=== PATIENT | male | born 1990 | race Two or more races ===

== ENCOUNTER 2017-10-12 17:31 | Emergency (ER) | payer OTHER ==
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
[2017-10-12] MEDS: Amoxicillin/Clavulanate K 875-125 MG Tab PO ONE (18:31)
[2017-10-12] MEDS: Ketorolac 60 MG/2 ML SDV IM ONE (18:32)
[2017-10-12] MEDS: cloNIDine 0.1 MG Tab PO ONE (19:10)
[2017-10-13] MEDS ORDERED: Magnesium Sulfate/Water 2 GM in Premix Bag 1 BAG IV ONE (00:45)
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
== END 2017-10-12 20:36 | disposition home or self-care (01) ==
LOC: FB.ED 17:31
DX: S06.0X0A Concussion without loss of consciousness, initial encounter (principal); S00.03XA Contusion of scalp, initial encounter; E87.6 Hypokalemia; I10 Essential (primary) hypertension; R00.0 Tachycardia, unspecified; V89.2XXA Person injured in unspecified motor-vehicle accident, traffic, initial encounter
CPT/HCPCS: 36415; 70450; 70486; 72125; 80048; 80305; 81001; 85025; 99284; A9270; G0480; J1885

== ENCOUNTER 2018-07-24 13:54 | Emergency (ER) | payer OTHER ==
[2018-07-24] MEDS ORDERED: Albuterol/Ipratropium 3.0-0.5 MG/3 ML Neb Soln NEB ONE (14:20)
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
== END 2018-07-24 15:04 | disposition home or self-care (01) ==
LOC: FB.ED 13:54
DX: J45.901 Unspecified asthma with (acute) exacerbation (principal)
CPT/HCPCS: 71046; 94640; 99284-25; J7620-GY

== ENCOUNTER 2019-02-25 17:16 | Emergency (ER) | payer OTHER ==
[2019-02-25] MEDS ORDERED: Sodium Chloride 0.9% 10 ML Syringe FLUSH PRN (17:59)
[2019-02-25] MEDS ORDERED: Albuterol/Ipratropium 3.0-0.5 MG/3 ML Neb Soln NEB ONE (17:59)
[2019-02-25] MEDS ORDERED: Dexamethasone 4 MG/ML SDV IVPUSH ONE (17:59)
--- NOTE | 2019-02-25 18:04 | EDM.PDOC ---
ED HPI GENERAL MEDICAL PROBLEM - General Chief Complaint: Chest Pain Stated Complaint: CHEST PAIN,HARD TIME BREATHING Time Seen by Provider: 02/25/19 18:00 Source of Information: Reports: Patient History Limitations: Reports: No Limitations - History of Present Illness INITIAL COMMENTS - FREE TEXT/NARRATIVE: Presents with productive cough, congestion, fevers and chills x 2 days, onset after inhalation of sulfur fumes @work. Patient has a h/o asthma. Complains of chest tightness and shortness of breath. No improvement after Proventil. Patient did not receive the flu shot this season. He does not smoke or vape. Onset Date: 02/23/19 Location: Reports: Chest Severity: Moderate Associated Symptoms: Reports: Fever/Chills - Related Data Allergies Allergy/AdvReac Type Severity Reaction Status Date / Time No Known Allergies Allergy Verified 07/24/18 14:09 Home Meds: Home Meds Albuterol [Proventil HFA] 200 puff INH Q4H PRN #1 inhaler 07/24/18 [Rx] Oseltamivir [Tamiflu] 75 mg PO BID #10 cap 02/25/19 [Rx] Sodium Chloride 0.9% [Saline Flush] 10 ml FLUSH ASDIRECTED PRN syringe [Rx] predniSONE [Prednisone] 60 mg PO DAILY 5 Days #15 tablet 02/25/19 [Rx] Past Medical History Cardiovascular History: Denies: CAD Respiratory History: Reports: Asthma, Other (See Below) (pneumonia) Social & Family History - Family History Family Medical History: Unobtainable - Tobacco Use Smoking Status *Q: Never Smoker - Caffeine Use Caffeine Use: Reports: Coffee ED ROS GENERAL - Review of Systems Review Of Systems: Comprehensive ROS is negative, except as noted in HPI. ED EXAM, GENERAL - Physical Exam Exam: See Below Exam Limited By: No Limitations General Appearance: Alert, WD/WN, No Apparent Distress Nose: Normal Inspection Throat/Mouth: Normal Inspection, No Airway Compromise Head: Atraumatic, Normocephalic Neck: Full Range of Motion Respiratory/Chest: No Respiratory Distress, Lungs Clear, Decreased Breath Sounds Cardiovascular: Regular Rate, Rhythm, No Murmur Back Exam: Full Range of Motion Extremities: Normal Range of Motion Neurological: Alert, Normal Cognition Psychiatric: Normal Affect, Normal Mood Skin Exam: Warm, Dry, Intact EKG INTERPRETATION EKG Date: 02/25/19 Time: 17:37 Rhythm: Other (sinus tachycardia) Rate (Beats/Min): 117 P-Wave: Present QRS: Normal ST-T: Other (nonspecific T abnormality) QT: Normal Course - Vital Signs Last Recorded V/S: Last Vital Signs Temp 38.9 C H 02/25/19 18:53 Pulse 110 H 02/25/19 17:30 Resp 17 02/25/19 17:30 BP 158/72 H 02/25/19 17:30 Pulse Ox 97 02/25/19 17:30 - Orders/Labs/Meds Orders: Active Orders 24 hr Category Date Time Status EKG Documentation Completion [RC] ASDIRECTED Care 02/25/19 17:58 Active RT Aerosol Therapy [RC] ASDIRECTED Care 02/25/19 17:59 Active CXR [Chest 2V] [CR] Stat Exams 02/25/19 17:58 Ordered CULTURE BLOOD [BC] Urgent Lab 02/25/19 18:20 Received CULTURE BLOOD [BC] Urgent Lab 02/25/19 18:32 Received Sodium Chloride 0.9% [Saline Flush] Med 02/25/19 17:59 Active 10 ml FLUSH ASDIRECTED PRN Blood Culture x2 Reflex Set [OM.PC] Urgent Oth 02/25/19 17:58 Ordered Saline Lock Insert [OM.PC] Routine Oth 02/25/19 17:59 Ordered EKG 12 Lead [EK] Stat Ther 02/25/19 17:58 Ordered Medication Orders Sodium Chloride (Saline Flush) 10 ml FLUSH ASDIRECTED PRN PRN Reason: Keep Vein Open Labs: Laboratory Tests 02/25/19 02/25/19 02/25/19 Range/Units 18:20 18:20 18:20 WBC 6.1 (4.5-12.0) X10-3/uL RBC 5.21 (4.30-5.75) x10(6)uL Hgb 16.3 (13.5-17.8) g/dL Hct 46.7 (30.0-51.3) % MCV 89.7 (80-96) fL MCH 31.2 (27.7-33.6) pg MCHC 34.8 (32.2-35.4) g/dL RDW 12.0 (11.5-15.5) % Plt Count 212 (125-369) X10(3)uL MPV 7.4 (7.4-10.4) fL Neut % (Auto) 67.2 (46-82) % Lymph % (Auto) 21.2 (13-37) % [place] % (Auto) 9.2 (4-12) % Eos % (Auto) 2 (1.0-5.0) % Baso % (Auto) 1 (0-2) % Neut # (Auto) 4.0 (1.6-8.3) # Lymph # (Auto) 1.3 (0.6-5.0) # [place] # (Auto) 0.6 (0.0-1.3) # Eos # (Auto) 0.1 (0.0-0.8) # Baso # (Auto) 0.1 (0.0-0.2) # Sodium 140 (135-145) mmol/L Potassium 3.3 L (3.5-5.3) mmol/L Chloride 103 (100-110) mmol/L Carbon Dioxide 27 (21-32) mmol/L BUN 10 (7-18) mg/dL Creatinine 0.8 (0.70-1.30) mg/dL Est Cr Clr Drug Dosing TNP Estimated GFR (MDRD) > 60 (>60) BUN/Creatinine Ratio 12.5 (9-20) Glucose 97 (80-116) mg/dL Lactic Acid 1.2 (0.4-2.0) mmol/L Calcium 8.5 L (8.6-10.2) mg/dL Total Bilirubin 0.4 (0.1-1.3) mg/dL AST 29 H (5-25) IU/L ALT 63 H (12-36) U/L Alkaline Phosphatase 82 (56-112) IU/L Total Protein 8.0 (6.0-8.0) g/dL Albumin 3.9 (3.5-5.2) g/dL Globulin 4.1 g/dL Albumin/Globulin Ratio 1.0 Meds: Medications Generic Name Dose Route Start Last Admin Trade Name Freq PRN Reason Stop Dose Admin Sodium Chloride 10 ml 02/25/19 17:59 Saline Flush FLUSH ASDIRECTED PRN Keep Vein Open Discontinued Medications Generic Name Dose Route Start Last Admin Trade Name Freq PRN Reason Stop Dose Admin Albuterol/Ipratropium 3 ml 02/25/19 17:59 02/25/19 18:16 Duoneb 3.0-0.5 Mg/3 Ml NEB 02/25/19 18:00 3 ml ONETIME ONE Administration Dexamethasone 10 mg 02/25/19 17:59 02/25/19 18:17 Dexamethasone IVPUSH 02/25/19 18:00 Not Given ONETIME ONE Dexamethasone Confirm 02/25/19 18:08 02/25/19 18:17 Dexamethasone Administered 02/25/19 18:09 Not Given Dose 20 mg .ROUTE .STK-MED ONE Dexamethasone 10 mg 02/25/19 18:18 02/25/19 18:45 Dexamethasone IVPUSH 02/25/19 18:19 Not Given ONETIME ONE Dexamethasone 10 mg 02/25/19 18:46 02/25/19 18:53 Dexamethasone IM 02/25/19 18:47 10 mg ONETIME ONE Administration Sodium Chloride 1,000 mls @ 999 mls/hr 02/25/19 18:30 Normal Saline IV .BOLUS RADHA Ibuprofen 600 mg 02/25/19 18:24 02/25/19 18:53 Motrin PO 02/25/19 18:25 600 mg ONETIME ONE Administration Oseltamivir Phosphate 75 mg 02/25/19 18:47 02/25/19 18:53 Tamiflu PO 02/25/19 18:48 75 mg ONETIME ONE Administration - Radiology Interpretation Free Text/Narrative:: CXR: No acute process. (ED provider interpretation) - Re-Assessments/Exams Free Text/Narrative Re-Assessment/Exam: 02/25/19 19:02 Patient feels much better after Duoneb and Decadron 10mg IM. Aeration improved, no wheeze. Patient was given Tamiflu 75mg PO and Ibuprofen 600mg PO prior to discharge. Sa02 97% RA, HR 122. Departure - Departure Time of Disposition: 19:03 Disposition: Home, Self-Care 01 Condition: Good Clinical Impression: Influenza A Asthma exacerbation Qualifiers: Asthma severity: moderate Asthma persistence: unspecified Qualified Code(s): J45.901 - Unspecified asthma with (acute) exacerbation - Discharge Information *PRESCRIPTION DRUG MONITORING PROGRAM REVIEWED*: No *COPY OF PRESCRIPTION DRUG MONITORING REPORT IN PATIENT LISHA: Not Applicable Prescriptions: Oseltamivir [Tamiflu] 75 mg PO BID #10 cap predniSONE [Prednisone] 60 mg PO DAILY 5 Days #15 tablet Instructions: Asthma, Adult, Influenza, Adult, [id number] Referrals: Reyes Goyal MD [Primary Care Provider] - Forms: ED Department Discharge, ED Return to Work/School Form Additional Instructions: Fill the prescriptions for Tamiflu and Prednisone and take as directed. Continue Albuterol inhaler as needed. Take Tylenol or Ibuprofen as needed to control fever. Return to the ER if symptoms worsen. Sepsis Event Note - Evaluation Sepsis Screening Result: Possible Sepsis Risk - Focused Exam Vital Signs: Vital Signs Temp Temp Pulse Resp BP Pulse Ox 02/25/19 18:53 38.9 C H 02/25/19 17:30 38.9 C H 110 H 17 158/72 H 97 Date Exam was Performed: 02/25/19 Time Exam was Performed: 19:01 - My Orders Last 24 Hours: My Active Orders 02/25/19 17:58 EKG Documentation Completion [RC] ASDIRECTED CXR [Chest 2V] [CR] Stat Blood Culture x2 Reflex Set [OM.PC] Urgent EKG 12 Lead [EK] Stat 02/25/19 17:59 RT Aerosol Therapy [RC] ASDIRECTED Sodium Chloride 0.9% [Saline Flush] 10 ml FLUSH ASDIRECTED PRN Saline Lock Insert [OM.PC] Routine 02/25/19 18:20 CULTURE BLOOD [BC] Urgent 02/25/19 18:32 CULTURE BLOOD [BC] Urgent - Assessment/Plan Last 24 Hours: My Active Orders 02/25/19 17:58 EKG Documentation Completion [RC] ASDIRECTED CXR [Chest 2V] [CR] Stat Blood Culture x2 Reflex Set [OM.PC] Urgent EKG 12 Lead [EK] Stat 02/25/19 17:59 RT Aerosol Therapy [RC] ASDIRECTED Sodium Chloride 0.9% [Saline Flush] 10 ml FLUSH ASDIRECTED PRN Saline Lock Insert [OM.PC] Routine 02/25/19 18:20 CULTURE BLOOD [BC] Urgent 02/25/19 18:32 CULTURE BLOOD [BC] Urgent
[2019-02-25] MEDS ORDERED: Dexamethasone 4 MG/ML 5 ML MDV ONE (18:08)
[2019-02-25] MEDS: Dexamethasone 4 MG/ML 5 ML MDV IVPUSH ONE ×2 (18:19→18:45)
[2019-02-25] MEDS ORDERED: Ibuprofen 600 MG Tab PO ONE (18:24)
[2019-02-25] MEDS ORDERED: Sodium Chloride 0.9% 1,000 ML IV SCH (18:30)
[2019-02-25] MEDS ORDERED: Dexamethasone 4 MG/ML 5 ML MDV IM ONE (18:46)
[2019-02-25] MEDS ORDERED: Oseltamivir 75 MG Cap PO ONE (18:47)
--- NOTE | 2019-02-26 11:06 | CR ---
INDICATION: Short of breath. CHEST, 2 VIEWS: Two PA views and two lateral views of the chest, 02/25/19, were compared with 07/24/18 and 05/06/12. Overlying EKG leads are noted. Mediastinum and bony thorax are unremarkable. The lungs appear to be hyperaerated and there is increased AP diameter with some flattening of diaphragm leaves suggesting obstructive airway disease as previously. No definite active infiltrate or effusion was identified with pulmonary markings similar to the previous examinations. IMPRESSION: Findings suggest obstructive airway disease. MTDD
== END 2019-02-25 19:28 | disposition home or self-care (01) ==
LOC: FB.ED 17:16
DX: J45.901 Unspecified asthma with (acute) exacerbation (principal); J10.1 Influenza due to other identified influenza virus with other respiratory manifestations; Z79.899 Other long term (current) drug therapy
CPT/HCPCS: 36415; 71046; 80053; 83605; 85025; 87040; 87804; 93005; 94640; 96372; 99285; A9270; J1100; J7620-GY

== ENCOUNTER 2024-10-23 23:18 | Emergency (ER) | payer OTHER | END 2024-10-24 00:17 | disposition home or self-care (01) | LOC: FB.ED 23:18 | DX: S92.352A Displaced fracture of fifth metatarsal bone, left foot, initial encounter for closed fracture (principal); Z79.899 Other long term (current) drug therapy; X50.1XXA Overexertion from prolonged static or awkward postures, initial encounter | CPT/HCPCS: 73610-LT; 99283 ==